=== PATIENT | female | born 1955 | race Caucasian/White ===

== ENCOUNTER 2021-09-16 07:45 | Observation (INO) | payer BC ==
[2021-09-09 15:46] LABS: BASOPHILS % (AUTO) 0.6 % (0-1); EOSINOPHILS # (AUTO) 0.3 X10'3 (0-0.9); EOSINOPHILS % (AUTO) 4.3 % (0-6); LYMPHOCYTES # (AUTO) 1.4 X10'3 (1.1-4.8); LYMPHOCYTES % (AUTO) 23.2 % (21-51); MEAN CORPUSCULAR HEMOGLOBIN 31.3 PG (27.0-31.0); MEAN CORPUSCULAR HGB CONC 33.2 g/dL (33.0-36.5); MEAN CORPUSCULAR VOLUME 94.1 FL (78-98); MEAN PLATELET VOLUME 8.1 FL (7.4-10.4); MONOCYTES # (AUTO) 0.5 X10'3 (0-0.9); MONOCYTES % (AUTO) 7.5 % (2-12); NEUTROPHILS % (AUTO) 64.4 % (42-75); PRE OP HEMATOCRIT 42.7 % (35.0-45.0); PRE OP HEMOGLOBIN 14.2 g/dL (12.0-16.0); PRE OP PLATELET COUNT 254 X10'3 (140-440); RED BLOOD COUNT 4.54 X10'6 (4.20-5.60); RED CELL DISTRIBUTION WIDTH 13.2 % (11.5-14.5)
[2021-09-09 15:57] LABS: ALBUMIN 3.6 G/DL (3.4-5.0); ALKALINE PHOSPHATASE 49 IU/L (46-116); BLOOD UREA NITROGEN 20 MG/DL (7-18); BUN/CREATININE RATIO 27.4 (6.6-38.0); CALCIUM 8.9 MG/DL (8.5-10.1); CHLORIDE 106 MMOL/L (99-107); CREATININE 0.73 MG/DL (0.40-0.90); PRE OP ALT 22 U/L (30-65); PRE OP ANION GAP 7 (8-16); PRE OP AST 16 U/L (10-37); PRE OP BILIRUB, TOTAL 0.3 MG/DL (0.0-1.0); PRE OP GLUCOSE 101 MG/DL (70-104); PRE OP SODIUM 140 MMOL/L (135-145); TOTAL CARBON DIOXIDE 27.5 MMOL/L (24-32); TOTAL PROTEIN 7.2 G/DL (6.4-8.2); eGFR 80 ML/MIN
[2021-09-16] VITALS (25 sets, daily range): BP systolic 91–130; BP diastolic 53–77
[~2021-09-16] VITALS: Ht 165.1 cm; Wt 79.4 kg
[~2021-09-16 07:45] MED LIST: AMLO10TA13 PO; ATEN50TA8 PO; BUPR300T86 PO; CELE100C98 PO; DOCUMENT DATE & TIME OF BETA-BLOCKER PO ONE; ESTR1TAB28 PO; OMEP20CA16 PO; ROSU10TA28 PO; SUMA25TA9 PO; TRAZ300T2 PO; VALA500T41 PO; VERA180C3 PO; ceFAZolin inj. 2,000 MG in dextrose 5%-water 100 ML IV ONE; famotidine 20mg tablet PO ONE; ringers solution, lacted 1,000 ML IV SCH
[2021-09-16] MEDS ORDERED: LIDOcaine 1% 30ml preserv. free vial ONE (09:33)
[2021-09-16] MEDS ORDERED: BUPIVAcaine/PF 2.5 mg/ml (0.25%) 30ml vial ONE (09:33)
[2021-09-16] MEDS ORDERED: glycopyrrolate 0.2mg/ml inj ONE (09:40)
[2021-09-16] MEDS ORDERED: sevoflurane 250ml liquid IH ONE (09:40)
[2021-09-16] MEDS ORDERED: neostigmine methylsulfate 1 MG/ML 10ml vial ONE (09:40)
[2021-09-16] MEDS ORDERED: midazolam 1 mg/ML 2ml injection ONE (09:43)
[2021-09-16] MEDS ORDERED: fentaNYL /PF 50mcg/ml 5ml ampule ONE (09:44)
[2021-09-16] MEDS ORDERED: rocuronium 10mg/ml inj IV ONE (09:45)
[2021-09-16] MEDS ORDERED: LIDOcaine 1%/PF 5ML 10 MG/ML VIAL ONE (09:48)
[2021-09-16] MEDS ORDERED: propofol inj 20 ML IV ONE (09:48)
[2021-09-16] MEDS ORDERED: ondansetron/PF 4mg/2ml inj ONE (09:53)
[2021-09-16] MEDS ORDERED: dexamethasone sod phosphate 4mg/ml inj. ONE (09:53)
[2021-09-16] MEDS ORDERED: ePHEDrine 50MG/ML INJ. ONE (10:04)
[2021-09-16] MEDS ORDERED: proCHLORperazine 10 MG/2 ml inj IV PRN (11:00)
[2021-09-16] MEDS ORDERED: ondansetron/PF 4mg/2ml inj IV PRN ×2 (11:00→11:45)
[2021-09-16] MEDS ORDERED: morphine 4 MG/ML inj SYRINge IV PRN (11:00)
[2021-09-16] MEDS ORDERED: ringers solution, lacted 1,000 ML IV SCH (11:00)
[2021-09-16] MEDS ORDERED: meperidine/PF 25mg/ml syringe IV PRN ×3 (11:00)
[2021-09-16] MEDS ORDERED: morphine 2 MG/ML inj. syringe IV PRN (11:00)
[2021-09-16] MEDS ORDERED: acetaminophen 1,000mg/100ml IV 100 ML IV ONE (11:23)
[2021-09-16] MEDS ORDERED: albumin (Human) 5% 250ml 250 ML IV ONE (11:24)
--- NOTE | 2021-09-16 11:42 | NUR ---
Received from OR via BED , accompanied by Anesthesiologist DR HENDRICKS and report given by Anesthesiolgist. PT COMPLAINING OF PAIN OF A 10 CHEST PAIN RADIATING INTO THROAT, NO CREPITUS NOTED, CHEST X-RAY ORDERED AND COMPLETED, VIEWED BY DR SORIA IN THE RECOVERY ROOM. PT MEDICATED BY ANESTHESIA AT BEDSIDE. [place] CATHETER INPLACE DRAINING CLEAR YELLOW URINE. LACTATED RINGERS BAG #2 HANGING PER ANESTHESIA. 5 WELL APPROXIMATED SMALL ABDOMINAL INCISION WITH NO DRESSING ON ABDOMEN, CLOSED WITH DERMABOND PT POSITIONED TO A SEMI FOWLERS POSITION WITH A REDUCTION IN PAIN IMMEDIATELY. PAIN DOWN TO AN 8 AFTER REPOSITIONED.
[2021-09-16] MEDS ORDERED: normal saline 1000ml 1,000 ML IV SCH (11:45)
[2021-09-16] MEDS ORDERED: Potassium Cl inj 20 MEQ in ringers solution, lacted 1,000 ML IV SCH (11:45)
[2021-09-16] MEDS ORDERED: naloxone 0.4 mg/ml inj IV PRN ×2 (11:45→11:50)
[2021-09-16] MEDS ORDERED: SUMAtriptan 25 MG tablet PO PRN (11:50)
--- NOTE | 2021-09-16 11:55 | NUR ---
PORTABLE CHEST X-RAY PERFORMED AND VIEWED BY DR SORIA
--- NOTE | 2021-09-16 12:15 | NUR ---
PT MEDICATED WITH DEMEROL WITH GOOD RESULTS PAIN NOW IMPROVED TO A 6
--- NOTE | 2021-09-16 12:20 | NUR ---
X-RAY CALLED TO REPORT PNEUMO, DR SORIA NOTIFIED VIA ANEL RN- OR CHARGE NURSE
--- NOTE | 2021-09-16 12:45 | NUR ---
Patient in room ORTHO 4013A. I have received report from KAREN TABARES FROM RECOVERY and had the opportunity to ask questions and assume patient care.
--- NOTE | 2021-09-16 13:11 | NUR ---
REPORT CALLED TO [facility], PHARMACY CALLED FOR MORPHINE CADD PUMP
--- NOTE | 2021-09-16 13:52 | NUR ---
PT TRANSPORTED TO 4TH FLOOR AFTER REPEAT CHEST XRAY COMPLETED, PER DR SORIA PNEUMO APPEARS STABLE AND DECREASED IN SIZE. CADD PUMP ATTACHED TO PT, DOSE GIVEN. PT REMAINS IN STABLE CONDITION TRANSPORTED WITH OXYGEN
[2021-09-16] MEDS: morphine/NS PCA 1mg/ml 50ml 50 ML IV SCH ×5 (15:21→23:26)
--- NOTE | 2021-09-16 18:20 | NUR ---
Patient in room ORTHO 4013A. I have received report from KAREN Tobias and had the opportunity to ask questions and assume patient care.
--- NOTE | 2021-09-16 18:53 | NUR ---
Problems reprioritized. Patient report given, questions answered & plan of care reviewed with KAREN GARRETT.
[2021-09-16] MEDS: sennosides/docusate sodium tablet PO SCH (20:01)
[2021-09-16] MEDS: buPROPion SR 150mg tablet PO SCH (20:04)
[2021-09-16] MEDS: potassium 20mEq/D5LR 1,000 ML IV SCH (20:04)
[2021-09-16] MEDS: verapamil SR 180mg tablet PO SCH (20:04)
[2021-09-16] MEDS: heparin, porcine 5000 units/ml vial SQ SCH (20:05)
[2021-09-16] MEDS ORDERED: amLODIPine 5mg tablet PO SCH (21:00)
[2021-09-16] MEDS ORDERED: traZODone 150mg tablet PO SCH (21:00)
[2021-09-17 02:00] VITALS: BP 95/60
[2021-09-17] MEDS: morphine/NS PCA 1mg/ml 50ml 50 ML IV SCH ×2 (02:03→03:06)
[2021-09-17] MEDS: potassium 20mEq/D5LR 1,000 ML IV SCH (03:47)
[2021-09-17] MEDS ORDERED: morphine/NS PCA 1mg/ml 50ml 50 ML IV SCH (04:51)
--- NOTE | 2021-09-17 05:10 | NUR ---
Previous bag of Morphine IV completely infused. Total infused: 49mg. Attempts/Given: 49/216. New bag of Morphine IV administered.
[2021-09-17 06:00] VITALS: BP 109/58
[2021-09-17 06:31] LABS: BASOPHILS % (AUTO) 0.4 % (0-1); EOSINOPHILS % (AUTO) 0 % (0-6); HEMATOCRIT 38.4 % (35.0-45.0); HEMOGLOBIN 13.1 g/dl (12.0-16.0); LYMPHOCYTES # (AUTO) 0.9 X10'3 (1.1-4.8); LYMPHOCYTES % (AUTO) 9.3 % (21-51); MEAN CORPUSCULAR HEMOGLOBIN 32.4 PG (27.0-31.0); MEAN CORPUSCULAR HGB CONC 34.2 g/dL (33.0-36.5); MEAN CORPUSCULAR VOLUME 94.9 FL (78-98); MEAN PLATELET VOLUME 8.1 FL (7.4-10.4); MONOCYTES # (AUTO) 0.8 X10'3 (0-0.9); MONOCYTES % (AUTO) 8.4 % (2-12); NEUTROPHILS # (AUTO) 7.7 X10'3 (1.8-7.7); NEUTROPHILS % (AUTO) 81.9 % (42-75); PLATELET COUNT 202 X10'3 (140-440); RED BLOOD COUNT 4.05 X10'6 (4.20-5.60); RED CELL DISTRIBUTION WIDTH 13.1 % (11.5-14.5); WHITE BLOOD COUNT 9.4 X10'3 (4.5-11.0)
--- NOTE | 2021-09-17 06:32 | NUR ---
Problems reprioritized. Patient report given, questions answered & plan of care reviewed with KAREN Harrison.
[2021-09-17 06:39] LABS: ALBUMIN 3.2 G/DL (3.4-5.0); ANION GAP 4 (8-16); BLOOD UREA NITROGEN 9 MG/DL (7-18); BUN/CREATININE RATIO 15.3 (6.6-38.0); CALCIUM 8.6 MG/DL (8.5-10.1); CHLORIDE 106 MMOL/L (99-107); CREATININE 0.59 MG/DL (0.40-0.90); GLUCOSE 117 MG/DL (70-104); POTASSIUM 4.1 MMOL/L (3.5-5.1); SODIUM 138 MMOL/L (135-145); TOTAL CARBON DIOXIDE 28.1 MMOL/L (24-32); eGFR > 90 ML/MIN
--- NOTE | 2021-09-17 06:40 | NUR ---
Patient in room ORTHO 4013. I have received report from KAREN Simpson and had the opportunity to ask questions and assume patient care.
[2021-09-17] MEDS ORDERED: atenolol 50mg tablet PO SCH (08:00)
[2021-09-17] MEDS ORDERED: estradiol 1mg tablet PO SCH (08:00)
[2021-09-17] MEDS ORDERED: atorvastatin 20mg tablet PO SCH (08:00)
[2021-09-17] MEDS ORDERED: acetaminophen 325mg tablet PO PRN (09:30)
[2021-09-17] MEDS: sennosides/docusate sodium tablet PO SCH (09:49)
[2021-09-17] MEDS: buPROPion SR 150mg tablet PO SCH (09:49)
[2021-09-17] MEDS: verapamil SR 180mg tablet PO SCH (09:50)
[2021-09-17] MEDS: heparin, porcine 5000 units/ml vial SQ SCH (09:51)
[2021-09-17 10:00] VITALS: BP 116/58
[2021-09-17] MEDS ORDERED: PCA WASTE DOCUMENTATION MC SCH (10:20)
[2021-09-17] MEDS: oxyCODONE/APAP 5-325mg tablet PO PRN ×2 (11:04→15:54)
--- NOTE | 2021-09-17 11:21 | NUR ---
Nutrition consult: Pt s/p fundoplication, seen at bedside for written and verbal nutrition therapy education which includes diet progression and ONS coupons. Pt reports reviewing education received pre-op multiple times and appears well prepared. All of patient's questions were answered at this time. RD contact information provided and pt encouraged to reach out if needed. Will remain available. Addendum: 09/17/21 at [address] Amended: Links added.
[2021-09-17] MEDS ORDERED: PER5325T PO (15:03)
== END 2021-09-17 16:00 | disposition home or self-care (01) ==
LOC: PAS 07:45 → ORTHO 4S 11:48
PROVIDERS: ADMIT Surgery; ATTEND Surgery
DX: K44.9 Diaphragmatic hernia without obstruction or gangrene (principal); Z20.822 Contact with and (suspected) exposure to COVID-19; K21.9 Gastro-esophageal reflux disease without esophagitis; K22.70 Barrett's esophagus without dysplasia; I10 Essential (primary) hypertension; F41.8 Other specified anxiety disorders; G43.909 Migraine, unspecified, not intractable, without status migrainosus; M19.90 Unspecified osteoarthritis, unspecified site; Z79.899 Other long term (current) drug therapy
CPT/HCPCS: 36415; 43282; 71045; 80048; 80053; 82948; 85025; 87081; 93005; 96365; 96366; 96372; 96375; 96376; C1758; C1781; G0378; J0131; J0690; J1100; J1644; J2175; J2250; J2270; J2405; J2704; J2710; J3010; J3480; J3490; J7060; J7120; P9045; S2900; U0003; U0005; A4618